=== PATIENT | female | born 1980 | race African-American/Black ===

== ENCOUNTER 2023-09-18 22:45 | Emergency (ER) | payer OTHER, SELFPAY ==
[2023-09-18 22:57] VITALS: BP 124/62
[2023-09-18 23:00] VITALS: BP 111/62
[2023-09-18 23:09] VITALS: BMI 27.9
[2023-09-18 23:30] LABS: % Basophils 0.9 % (0-2); % Eosinophils 0.6 % (0-6); % Immature Granulocytes 0.4 % (0-0.5); % Monocytes 12.7 % (1.7-9.3); % Neutrophils 49.4 % (42.2-75.2); Absolute Basophils 0.1 10^3/uL (0-0.2); Absolute Lymphocytes 1.9 10^3/uL (1.2-3.4); Absolute Monocytes 0.7 10^3/uL (0.1-0.6); Absolute Neutrophils 2.6 10^3/uL (1.4-6.5); Hemoglobin 7.8 g/dL (12.0-16.0); Mean Corp Hgb Conc. 31.2 g/dL (33.0-37.0); Mean Corpuscular Hgb 24.2 pg (27.0-31.0); Mean Corpuscular Volume 77.6 fL (81.0-99.0); Mean Platelet Volume 10.6 fL (7.4-10.4); Nucleated Red Blood Cells % 0 %; Platelet Count 248 10^3/uL (130-400); Red Blood Cell Count 3.22 10^6/uL (4.20-5.40); Red Cell Dist. Width 17.4 % (11.5-14.5); White Blood Cell Count 5.3 10^3/uL (4.8-10.8)
[2023-09-18 23:42] LABS: ALT (SGPT) 19 U/L (0-35); AST (SGOT) 25 U/L (14-36); Albumin 3.8 g/dl (3.5-5.0); Alkaline Phosphatase 91 U/L (38-126); Blood Urea Nitrogen 16 mg/dl (7-17); Calcium 8.7 mg/dl (8.4-10.2); Carbon Dioxide 18 mmol/L (22-30); Chloride 112 mmol/L (98-107); Estimated Creatinine Clearance 107 ml/min; Glucose 91 mg/dl (70-99); Potassium 4.4 mmol/L (3.5-5.1); Sodium 138 mmol/L (135-145); Total Bilirubin 0.3 mg/dl (0.2-1.3); eGFR > 60.00
--- NOTE | 2023-09-18 23:57 | ED.GENMED ---
History of Present Illness
General
Chief Complaint: Fainting/Passed Out
Source: patient
Exam Limitations: none
Time Seen by Provider: 09/18/23 23:30
Nursing documentation reviewed up to this point in time: agreed with
History of Present Illness
History of Present Illness:
42-year-old female history of lupus and anemia baseline hemoglobin 6.8 presents with a syncopal event apparently was standing there and had a large liquid bowel movement and vomited then passed out and struck her head came to the ER covered in
liquid stool which is yellow now is feeling better denies any abnormal vaginal bleeding rectal bleeding, no chest pain or shortness of breath
Past History
Past History
ED Past Medical History: Other (Lupus with anemia)
Social History
Tobacco: Non-smoker
Alcohol: None
Drug: None
Living: jail
Employment: Not employed
Review of Systems
Review of Systems
All Other Systems: Not applicable
Constitutional: Denies fever or fatigue
EENT: Reports no symptoms
Respiratory: Reports no symptoms; Denies cough or trouble breathing
Cardiac: Reports syncope
ABD/GI: Reports nausea, vomiting and diarrhea; Denies black stools
: Denies bleeding
Musculoskeletal: Reports no symptoms
Skin: Reports no symptoms
Neurological: Reports weakness
Endocrine: Reports no symptoms
Hematologic/Lymphatic: Reports no symptoms; Denies bleeding or bruising
Psychiatric: Reports no symptoms
Phy Exam
Physical Exam
Physical Exam:
Physical Exam
General: 42female appears older than stated age resting comfortably in the bed
Neck: No posterior neck pain no tongue
Heart: s1/s2 regular rate and rhythm, no murmur. equal radial pulses.
Lungs: no acute respiratory distress. clear bilaterally
Abdomen: Nontender
Neuro: alert and oriented. no focal neurological deficits
Skin: no rash
Psychiatric: cooperative
Extremities: no edema.
Course
Orders/Labs/Results
Orders:
Orders
09/18/23 22:52
EKG [Electrocardiogram (*1)] Urgent
Reason for Study: Syncope
EKG- Treatment ONCE
09/18/23 23:19
CBC/With Diff [Complete Blood Count/With Diff] Urgent
CMP [Comprehensive Metabolic Panel] Urgent
09/18/23 23:56
0.9% Sodium Chloride 1000 ml [Nss] 1,000 ml IV BOLUS
Abnormal Lab Results
09/18/23
23:19
RBC 3.22 L 10^6/uL
(4.20-5.40)
Hgb 7.8 L g/dL
(12.0-16.0)
Hct 25.0 L %
(37.0-47.0)
MCV 77.6 L fL
(81.0-99.0)
MCH 24.2 L pg
(27.0-31.0)
MCHC 31.2 L g/dL
(33.0-37.0)
RDW 17.4 H %
(11.5-14.5)
MPV 10.6 H fL
(7.4-10.4)
Absolute Monos (auto) 0.7 H 10^3/uL
(0.1-0.6)
Monocytes % 12.7 H %
(1.7-9.3)
Chloride 112 H mmol/L
(98-107)
Carbon Dioxide 18 L mmol/L
(22-30)
09/18/23 23:19
09/18/23 23:19
Vital Signs
Initial and Last Documented VS:
Initial Vital Signs
Temp Pulse Resp BP Pulse Ox
97.7 F 72 15 124/62 97
09/18/23 22:57 09/18/23 22:57 09/18/23 22:57 09/18/23 22:57 09/18/23 22:57
Last Documented Vital Signs
Temp Pulse Resp BP Pulse Ox
97.7 F 77 18 111/62 97
09/18/23 22:57 09/18/23 23:00 09/18/23 23:00 09/18/23 23:00 09/18/23 22:57
MDM/Problems Addressed
Differential Diagnosis Includes:
Vasovagal symptomatic anemia electrolyte abnormality arrhythmia
MDM/Problems Addressed:
Syncope diarrheal illness
Chronic conditions affecting care:
Lupus with anemia
Acute Exacerbation and/or Progression of Chronic Illness:
Lupus with anemia
*Pulse Oximetry
Patient hypoxic: no
*EKG
Interpreted by ED Provider?: Yes
Interpretation: normal
Comparison EKG: no comparison EKG present
Heart Rate: 78
Rate: normal
Rhythm: sinus
Ischemia: non-specific ST changes
*Enrollment Manager Interpretation
Rate: normal
Interpretation: normal
Heart Rate: 78
Rhythm: sinus
*Critical Care Note
Total Time (30-74mins, 75-104mins- exclusive of procedures): Not Applicable
Update Note
Update Note:
Update, hemoglobin noted, higher than the patient's baseline, symptoms only started after a diarrheal illness liquid yellow stool, electrolytes are noted we will start saline hydration and monitor for improvement
ED Attending Note
-
Portions of this chart may have been created with voice recognition software.� Occasional wrong word or��sound alike� substitutions may have occurred due to the inherent limitations of voice recognition software.
Discharge Plan
Departure
Patient Disposition: Home (Routine Discharge)
Date of Disposition: 09/19/23
Time of Disposition: 00:23
Patient with high blood pressure during this ER visit?: No
Condition: Good
Discharge Problem:
Syncope and collapse
Instructions: Syncope (Fainting) (DC)
Referrals:
[facility] [Family Provider] -
Interventions
Interventions:
*Risk Screen - Suicide Last Done: 09/18/23 23:03
*General Assessment Last Done: 09/18/23 23:03
*Neglect/Abuse Screening Last Done: 09/18/23 23:03
ED- Fall Risk Assessment Last Done: 09/18/23 23:03
*ED COVID-19 Vaccine History Last Done: 09/18/23 23:03
ED- Cardiac Assessment Last Done: 09/18/23 23:03
ED- Neurological Assessment Last Done: 09/18/23 23:03
Discharge Date and Time
Print Language: [id number]
[2023-09-19] VITALS: BP 92/76
[2023-09-19] MEDS: NSS 1000 IV (00:13)
== END 2023-09-19 00:59 | disposition home or self-care (01) ==
LOC: EMR 22:45
PROVIDERS: EMERGENCY PHYSICIAN Emergency Medicine
DX: R55 Syncope and collapse (principal); M32.9 Systemic lupus erythematosus, unspecified; D64.9 Anemia, unspecified
CPT/HCPCS: 99283; 80053; 85025; 93005